=== PATIENT | female | born 2000 | race African-American/Black ===

== ENCOUNTER 2018-07-22 17:10 | Emergency (ER) | payer MEDICAID, OTHER ==
[~2018-07-22] VITALS: Ht 170.2 cm; Wt 60.9 kg
[~2018-07-22 17:10] MED LIST: ALBU2SYR21 PO
[2018-07-22 17:32] VITALS: BP 129/74
--- NOTE | 2018-07-22 17:45 | NUR ---
PATIENT AMBULATED TO ER CHAIR C.
--- NOTE | 2018-07-22 17:50 | NUR ---
PT IS A 18 Y/O FEMALE WHO PRESENTS TO THE ED C/O TOOTHACHE. PT STATES THAT PAIN HAS BEEN BOTHERING X10 DAYS. PT HAS NOT SEEN DENTIST. PT REPORTS 10/10 ACHING TOOTHACHE PAIN THAT DOES NOT RADIATE. PT DENIES CP, SOB, N/V/D. PT AWAKE AND ALERT, RR EVEN/UNLABORED. PT REPOSITIONED FOR COMFORT, BED IN LOWEST POSITION. ER PROVIDER NOTIFIED. WILL CONTINUE TO MONITOR. PMH---ASTHMA NKA
[2018-07-22] MEDS ORDERED: KETOROLAC 30 MG/ML VIAL IM ONE (18:15)
--- NOTE | 2018-07-22 18:42 | NUR ---
Patient discharged with v/s stable. Written and verbal after care instructions given and explained. Patient alert, oriented and verbalized understanding of instructions. Ambulatory with steady gait. All questions addressed prior to discharge. ID band removed. Patient advised to follow up with PMD. Rx of AMOXICILLIN/IBUPROFEN/TRAMADOL given. Patient educated on indication of medication including possible reaction and side effects. Opportunity to ask questions provided and answered.
[2018-07-22 18:43] VITALS: BP 118/64
== END 2018-07-22 18:42 | disposition home or self-care (01) ==
LOC: MED 17:10
DX: S02.5XXA Fracture of tooth (traumatic), initial encounter for closed fracture (principal); K05.30 Chronic periodontitis, unspecified; J45.909 Unspecified asthma, uncomplicated; Z79.899 Other long term (current) drug therapy; X58.XXXA Exposure to other specified factors, initial encounter; Y93.89 Activity, other specified; Y92.89 Other specified places as the place of occurrence of the external cause; Y99.8 Other external cause status
CPT/HCPCS: 96372; 99283; J1885